=== PATIENT | female | born 1985 | race Caucasian/White ===

== ENCOUNTER → 2020-03-13 12:58 | Outpatient (BNVA) | payer OTHER, SELFPAY | PROVIDERS: Visit Provider Nurse Practitioner Family | DX: Z11.59 Encounter for screening for other viral diseases (principal) | CPT/HCPCS: 87635 ==

== ENCOUNTER → 2023-02-01 08:09 | Outpatient (BNVA) | payer MEDICAID, SELFPAY | PROVIDERS: PCP Registered Nurse; Visit Provider Registered Nurse | DX: R53.83 Other fatigue (principal) | CPT/HCPCS: 82310; 83525; 83970; 86003; 86008; 86376; 86800 ==

== ENCOUNTER → 2023-03-26 08:16 | Outpatient (BNVA) | payer MEDICAID, SELFPAY | PROVIDERS: PCP Registered Nurse; Visit Provider Registered Nurse | DX: Z91.018 Allergy to other foods (principal); Z88.9 Allergy status to unspecified drugs, medicaments and biological substances; M25.50 Pain in unspecified joint; R53.82 Chronic fatigue, unspecified | CPT/HCPCS: 86003; 86431 ==

== ENCOUNTER 2023-04-02 14:36 | Outpatient (CLI) | payer MEDICAID, SELFPAY ==
--- NOTE | 2023-04-02 15:00 | US_ITS ---
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 Right lobe: 1.4 cm x 1.5 cm x 4.3 cm (w x ap x l). Volume: 4.9 cm3. Normal size and echotexture. No significant are dominant nodules are present. Left lobe: 1.2 cm x 1.0 cm x 4.1 cm (w x ap x l). Volume: 2.6 cm3. Normal sized gland. 2 subcentimeter hypoechoic nodules in the gland. The largest is 4 mm. Nonspecific and not concerning at this time. Isthmus: 0.3 cm. IMPRESSION: 1. No suspicious masses or nodules. 2. Subcentimeter, benign-appearing nodules LEFT thyroid.
== END 2023-04-02 14:37 | disposition home or self-care (01) ==
LOC: RAD 14:36
PROVIDERS: PCP Registered Nurse; Visit Provider Registered Nurse
DX: E04.0 Nontoxic diffuse goiter (principal); E04.2 Nontoxic multinodular goiter
CPT/HCPCS: 76536

== ENCOUNTER 2023-09-02 12:41 | Outpatient (CLI) | payer OTHER, SELFPAY ==
--- NOTE | 2023-09-02 13:00 | MM_ITS ---
WS: [id number] BILATERAL 3D TOMOSYNTHESIS DIGITAL DIAGNOSTIC MAMMOGRAPHY WITH CAD CLINICAL INFORMATION: N63.25 - Unspecified lump in the left breast, overlapping... HISTORY: LEFT breast lump COMPARISON: Baseline TECHNIQUE: Bilateral CC, MLO, and ML views. FINDINGS: The breasts are composed of heterogeneous fibroglandular density, which can limit the detection of sm all underlying mass lesions. Spiculated mass in the area of palpable concern upper outer quadrant LEF T breast measuring approximately 1.2 x 1.2 cm with associated surrounding parenchymal distortion. Ult rasound of this area is pending. Unremarkable RIGHT breast. ULTRASOUND BREAST LEFT TECHNIQUE: Ultrasound left breast focused area of concern. CLINICAL INFORMATION: N63.25 - Unspecified lump in the left breast, overlapping... FINDINGS: Ultrasound LEFT breast area of palpable concern. Dense shadowing hypoechoic lesion in the area of con cern 3 o'clock position 3.1 cm from the nipple. This measures approximately 1.3 x 1.9 x 1.4 cm highly suspicious for neoplasm. Recommend further evaluation with ultrasound-guided biopsy. Ultrasound of the LEFT axilla is normal. No visualized lymphadenopathy. IMPRESSION: MM/[place] [id number] BI-RADS: 5-Highly Suggestive of Malignancy FOLLOW UP: US Guided Biopsy Recommended Recommend ultrasound-guided biopsy of the LEFT breast lesion. Message LEFT for Corey Chester IUSS ANALYST at 245pm on 09/02/23
--- NOTE | 2023-09-02 14:18 | US_ITS ---
WS: [id number] BILATERAL 3D TOMOSYNTHESIS DIGITAL DIAGNOSTIC MAMMOGRAPHY WITH CAD CLINICAL INFORMATION: N63.25 - Unspecified lump in the left breast, overlapping... HISTORY: LEFT breast lump COMPARISON: Baseline TECHNIQUE: Bilateral CC, MLO, and ML views. FINDINGS: The breasts are composed of heterogeneous fibroglandular density, which can limit the detection of sm all underlying mass lesions. Spiculated mass in the area of palpable concern upper outer quadrant LEF T breast measuring approximately 1.2 x 1.2 cm with associated surrounding parenchymal distortion. Ult rasound of this area is pending. Unremarkable RIGHT breast. ULTRASOUND BREAST LEFT TECHNIQUE: Ultrasound left breast focused area of concern. CLINICAL INFORMATION: N63.25 - Unspecified lump in the left breast, overlapping... FINDINGS: Ultrasound LEFT breast area of palpable concern. Dense shadowing hypoechoic lesion in the area of con cern 3 o'clock position 3.1 cm from the nipple. This measures approximately 1.3 x 1.9 x 1.4 cm highly suspicious for neoplasm. Recommend further evaluation with ultrasound-guided biopsy. Ultrasound of the LEFT axilla is normal. No visualized lymphadenopathy. IMPRESSION: US/US breast LT limited* [id number] BI-RADS: 5-Highly Suggestive of Malignancy FOLLOW UP: US Guided Biopsy Recommended Recommend ultrasound-guided biopsy of the LEFT breast lesion. Message LEFT for Corey Chester AUTOMOBILE MECHANIC APPRENTICE at 245pm on 09/02/23
== END 2023-09-02 12:42 | disposition home or self-care (01) ==
LOC: RAD 12:41
PROVIDERS: PCP Registered Nurse; Visit Provider Registered Nurse
DX: N63.25 Unspecified lump in the left breast, overlapping quadrants (principal)
CPT/HCPCS: 76642; 77062; G0279

== ENCOUNTER 2023-09-10 09:29 | Outpatient (CLI) | payer OTHER, MEDICAID, SELFPAY ==
--- NOTE | 2023-09-10 09:35 | US_ITS ---
WS: [id number] ULTRASOUND-GUIDED LEFT BREAST BIOPSY HISTORY: ABNORMAL INCONCLUSIVE FINDINGS COMPARISON: 09/02/2023 Procedure, risks and complications are explained to the patient. Medications are reviewed. Consent is obtained. The mass in the LEFT breast is localized with ultrasound. Mass localizes to 3:00. Skin is cleansed wi th ChloraPrep and anesthetized with 1% buffered lidocaine. Small dermatome is made. Under sterile con ditions mass is biopsied with a 14-gauge Achieve needle. Multiple core biopsies are performed. Materi al placed in formalin and sent to pathology for review. No complications encountered. Breast tissue marker (Tutor Assignment ultrasound enhanced ribbon): Single. Patient left the radiology suite with no complications. [place] [facility] [place] [facility] with any concerns. IMPRESSION: 1. Uncomplicated core needle biopsy LEFT breast mass at 3:00. 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 No lymphovascular invasion seen. Refer to the pathology report for further details. The breast cancer prognostic profile will be performed and reported separately. RECOMMENDATION: Follow-up with PCP, oncology and surgery.
[2023-09-16 15:26] LABS: Breast Profile ER,PR,HER2,Ki-6 See Report
== END 2023-09-10 09:30 | disposition home or self-care (01) ==
PROVIDERS: PCP Registered Nurse; Visit Provider Registered Nurse
DX: C50.812 Malignant neoplasm of overlapping sites of left female breast (principal)
CPT/HCPCS: 19083; 88305; 88361; 88374